=== PATIENT | female | born 1995 | race Caucasian/White ===

== ENCOUNTER 2023-02-21 00:24 | Emergency (ER) | payer OTHER ==
[2023-02-21 00:45] VITALS: BP 131/81; PULSE 87; RESP 20; TEMP 98.1; BMI 31.4
[2023-02-21] MEDS ORDERED: LIDOCAINE 5% TOPICAL PATCH TP ONE (01:07)
[2023-02-21] MEDS ORDERED: ACETAMINOPHEN 325 MG TABLET (FP) PO ONE (01:07)
[2023-02-21] MEDS ORDERED: KETOROLAC TROMETHAMINE 30 MG/1 ML VIAL IM ONE (01:07)
[2023-02-21] MEDS ORDERED: ACETAMINOPHEN 325 MG TABLET (FP) ONE (01:11)
[2023-02-21] MEDS ORDERED: LIDOCAINE 5% TOPICAL PATCH ONE (01:12)
[2023-02-21] MEDS ORDERED: KETOROLAC TROMETHAMINE 30 MG/1 ML VIAL ONE (01:12)
[2023-02-21] MEDS ORDERED: METHOCARBAMOL 500 MG TABLET PO ONE (02:14)
[2023-02-21] MEDS ORDERED: METHOCARBAMOL 500 MG TABLET ONE (02:17)
[2023-02-21] MEDS ORDERED: LIDOCAINE PATCH REMOVAL MC SCH (22:00)
== END 2023-02-21 02:34 | disposition home or self-care (01) ==
LOC: JER 00:24
PROC: 3E0233Z Introduction of Anti-inflammatory into Muscle, Percutaneous Approach (ICD-10-PCS; principal; 2023-02-21)
DX: M54.50 Low back pain, unspecified (principal); M62.830 Muscle spasm of back
CPT/HCPCS: 72100-TC-FY; 99284-25